=== PATIENT | female | born 1990 | race African-American/Black ===

== ENCOUNTER 2021-06-28 09:13 | Emergency (ER) | payer BC, MEDICAID ==
[~2021-06-28] VITALS: Ht 167.6 cm; Wt 107.0 kg
[~2021-06-28 09:13] MED LIST: MESA400T14; [UNRECOGNIZED DRUG - REMARK]
[2021-06-28] MEDS ORDERED: ONDANSETRON HCL 4MG/2ML INJ IV STA (09:35)
[2021-06-28] MEDS ORDERED: SODIUM CHLORIDE 0.9% 1,000 ML IV ONE (09:45)
[2021-06-28 10:15] LABS: BASOPHILS % 0.5 % (0.0-2.0); EOSINOPHILS % 4.1 % (0.0-5.0); HEMATOCRIT. 37.2 % (36.0-48.0); HEMOGLOBIN. 12.8 g/dL (12.0-16.0); LYMPHOCYTES % 27.1 % (20.0-50.0); MEAN CORPUSCULAR HEMOGLOBIN 30.2 pg (28.0-32.0); MEAN CORPUSCULAR VOLUME 87.4 fL (81.0-99.0); MEAN PLATELET VOLUME 6.8 fl (7.4-10.4); MONOCYTES % 7.8 % (2.0-8.0); NEUTROPHILS % 60.5 % (40.0-76.0); PLATELET 464 x1000/uL (130-400); RED BLOOD CELL COUNT 4.25 mill/uL (4.2-5.4); RED CELL DISTRIBUTION WIDTH 13.5 % (11.6-14.6)
[2021-06-28 10:20] LABS: CHLORIDE 106 mEq/L (98-107)
[2021-06-28 10:43] LABS: CLARITY URINE CLEAR (CLEAR); COLOR URINE YELLOW (YELLOW); KETONES URINE TRACE (NEGATIVE); LEUKOCYTE ESTERASE URINE NEGATIVE (NEGATIVE); NITRITE URINE NEGATIVE (NEGATIVE); OCCULT BLOOD URINE TRACE (NEGATIVE); PROTEIN URINE NEGATIVE (NEGATIVE); UROBILINOGEN URINE 0.2 E.U./dL (0.2-1.0)
[2021-06-28] MEDS ORDERED: MORPHINE SULFATE 4 MG/ML CPJ (NOT FOR IM USE) IV ONE (11:30)
[2021-06-28] MEDS ORDERED: CIPR-263 PO (12:46)
[2021-06-28] MEDS ORDERED: METR-167 PO (12:46)
[2021-06-28] MEDS ORDERED: OXYC-100 PO (12:46)
[2021-06-28] MEDS ORDERED: ONDA4TAB5 PO (13:32)
[2021-06-28 13:46] VITALS: BP 122/82
== END 2021-06-28 13:47 | disposition home or self-care (01) ==
LOC: ER 09:13
DX: K52.9 Noninfective gastroenteritis and colitis, unspecified (principal); R03.0 Elevated blood-pressure reading, without diagnosis of hypertension; R20.0 Anesthesia of skin; R20.2 Paresthesia of skin; Z88.0 Allergy status to penicillin
CPT/HCPCS: 36415; 74176; 80053; 81003; 81025; 83690; 85025; 86850; 86900; 86901; 93971; 96361; 96374; 96375; 99285; J2270; J2405; J7030